=== PATIENT | male | born 1940 | race Caucasian/White ===

== ENCOUNTER → 2018-08-09 | Outpatient (CLI) | payer MEDICARE ==
--- NOTE | 2018-08-10 21:27 | SLEEPHOME ---
DATE OF PROCEDURE: 08/09/2018 ORDERED BY: Estefani Kumar Diagnostic home sleep testing was performed due to concern for the obstructive sleep apnea syndrome. For testing a nocturnal T3 respiratory monitoring device was used. Continuous record was made of pulse, oxygen saturation, airflow, chest, abdominal strain and body position. 9 hours and 59 minutes of data were reviewed. There were 7 hours and 30 minutes marked as time in bed. During the interval marked time in bed, there were 156 respiratory events identified of 10 seconds in duration or greater for a respiratory event index of 20.8. The events were primarily obstructive. Baseline pulse rate 55, pulse rate ranged 43-85. Baseline saturation 93%. Saturations fell as low as 86%. Testing was performed in both the supine and nonsupine positions. IMPRESSION: Abnormal home sleep testing with repetitive respiratory events and oxygen desaturations to 86% with a respiratory event index of 20.8 is consistent with the obstructive sleep apnea syndrome. RECOMMENDATIONS: The patient should be encouraged to undergo a formal sleep evaluation and in laboratory pressure titration.
== END ==
LOC: M SLEEP HO 09:57
PROVIDERS: ATTEND Nurse Practitioner Family
DX: I10 Essential (primary) hypertension (principal)